=== PATIENT | male | born 1990 | race Caucasian/White ===

== ENCOUNTER 2018-06-02 17:29 | Emergency (ER) | payer MEDICAID ==
[~2018-06-02] VITALS: Ht 167.6 cm; Wt 83.0 kg
[2018-06-02 17:36] VITALS: Ht 167.6 cm; Wt 83.0 kg
[2018-06-02] MEDS ORDERED: TETRACAINE 0.5% 4 ML OPH RIGHT EYE ONE (18:30)
[2018-06-02] MEDS ORDERED: FLUORESCEIN STRIP RIGHT EYE ONE (18:30)
[2018-06-02] MEDS ORDERED: SULF15DR19 RIGHT EYE (19:37)
[2018-06-02 19:51] VITALS: BP 120/59; PULSE 95; RESP 16
--- NOTE | 2018-06-02 21:09 | ERD ---
ER Documentation Chief Complaint Chief Complaint Foreign body to the eye Glass from cell HPI 28 year-old [male] coming in today with Chief Complaint: Right eye pain History of Present Illness: Patient reporting cell phone right eye screen cracked and glass flew eye. Patient reporting pain, denies any other associated symptoms. Review of systems: All systems were reviewed and are negative except for what is indicated in the history of present illness. Past Medical History: [Negative for hypertension, diabetes or other medical problems] Social History: [Patient denies tobacco, alcohol, elicit drug use] Medications: [None] Allergies: [NKDA] Social Concerns: Denies ROS All systems reviewed and are negative except as per history of present illness. Medications Home Meds Active Scripts Sulfacetamide Sodium* (Bleph-10*) 10%-15 Ml Opht Drops, 2 DROP RIGHT EYE Q2H for corneal abrasion for 10 Days, #1 EA Prov:RO GUADALUPE Emmanuel WEBSITE PROJECT MANAGER 06/02/18 PMhx/Soc Medical and Surgical Hx: pt denies Medical Hx, pt denies Surgical Hx Hx Alcohol Use: No Hx Substance Use: No Hx Tobacco Use: Yes Smoking Status: Current every day smoker FmHx Family History: diabetes, coronary disease Physical Exam Vitals Vital Signs Date Temp Pulse Resp B/P (MAP) Pulse Ox O2 O2 Flow FiO2 Time Delivery Rate 06/02/18 98.0 95 16 120/59 100 Room Air 19:51 (79) 06/02/18 97.3 89 20 148/85 100 17:36 (106) Physical Exam Const: No acute distress Head: Atraumatic Eyes: Injected conjunctiva ENT: Normal External Ears, Nose and Mouth. Neck: Full range of motion. No meningismus. Resp: Clear to auscultation bilaterally Cardio: Regular rate and rhythm, no murmurs Abd: Soft, non tender, non distended. Normal bowel sounds Skin: No petechiae or rashes Back: No midline or flank tenderness Ext: No cyanosis, or edema Neur: Awake and alert Psych: Normal Mood and Affect Results 24 hrs Current Medications Medications Dose Sig/Pranav Start Time Status Last (Trade) Ordered Route PRN Stop Time Admin Dose Reason Admin Tetracaine 1 drop ONCE ONCE 06/02/18 DC HCl RIGHT EYE 18:30 (Tetracaine 06/02/18 18:31 0.5% Steri-Unit Celina) Fluorescein 1 strip ONCE ONCE 06/02/18 DC Sodium RIGHT EYE 18:30 (Azgge-L-Jlly 06/02/18 18:31 p) Procedures/MDM Patient with complaint of foreign body to right eye ED course includes a thorough examination and history. ED course includes fernandez lamp exam: Eye Exam w/ Fernandez Lamp: Visual Acuity: Visual Simmons: Intact in all four quadrants bilaterally Lac ducts/glands: No swelling Lids w/ evertion: Normal, no foreign body Conj/Carmi: negative Jean's; positive Fluorescein uptake to cornea Tonopen readings: Retina exam: No obvious abnormality Low suspicion for global rupture or ophthalmologic emergency. Otherwise healthy patient presenting with constellation of symptoms likely representing uncomplicated corneal abrasion as characterized by history, physical exam findings. No respiratory distress, otherwise relatively well appearing and nontoxic. Patient educated on diagnoses, prescriptions, follow-up care, return precautions. Strict return precautions given for worsening condition; questions answered discharge. Disposition for discharge with followup in 1-2 days with PCP/clinic, preferably ophthalmology. Nurse at bedside for Tongan translation. Patient verbalized understanding of all instructions and plan of care. Departure Diagnosis: Primary Impression: Corneal abrasion, right Encounter type: initial encounter Qualified Codes: S05.01XA - Injury of conjunctiva and corneal abrasion without foreign body, right eye, initial encounter Condition: Stable Patient Instructions: Corneal Abrasion Referrals: [facility] YOU HAVE RECEIVED A MEDICAL SCREENING EXAM AND THE RESULTS INDICATE THAT YOU DO NOT HAVE A CONDITION THAT REQUIRES URGENT TREATMENT IN THE EMERGENCY DEPARTMENT. FURTHER EVALUATION AND TREATMENT OF YOUR CONDITION CAN WAIT UNTIL YOU ARE SEEN IN YOUR DOCTORS OFFICE WITHIN THE NEXT 1-2 DAYS. IT IS YOUR RESPONSIBILITY TO MAKE AN APPOINTMENT FOR FOLOW-UP CARE. IF YOU HAVE A PRIMARY DOCTOR --you should call your primary doctor and schedule an appointment IF YOU DO NOT HAVE A PRIMARY DOCTOR YOU CAN CALL OUR PHYSICIAN REFERRAL HOTLINE AT IF YOU CAN NOT AFFORD TO SEE A PHYSICIAN YOU CAN CHOSE FROM THE FOLLOWING [facility] [address] [facility] [address] [facility] [facility] [address] [facility] [address] [facility] [facility] [address] [facility]. [facility] [address] [facility]. [facility] YOU HAVE RECEIVED A MEDICAL SCREENING EXAM AND THE RESULTS INDICATE THAT YOU DO NOT HAVE A CONDITION THAT REQUIRES URGENT TREATMENT IN THE EMERGENCY DEPARTMENT. FURTHER EVALUATION AND TREATMENT OF YOUR CONDITION CAN WAIT UNTIL YOU ARE SEEN IN YOUR DOCTORS OFFICE WITHIN THE NEXT 1-2 DAYS. IT IS YOUR RESPONSIBILITY TO MAKE AN APPOINTMENT FOR FOLOW-UP CARE. IF YOU HAVE A PRIMARY DOCTOR --you should call your primary doctor and schedule and appointment IF YOU DO NOT HAVE A PRIMARY DOCTOR YOU CAN CALL OUR PHYSICIAN REFERRAL HOTLINE AT . IF YOU CAN NOT AFFORD TO SEE A PHYSICIAN YOU CAN CHOSE FROM THE FOLLOWING [facility] INSTITUTIONS: [facility] [address] [place] [address] [facility] [address] [place], [place] [id number] [place] [address] + [facility] [address] [place] [address] [facility] Hours: Mon - Fri 9:00 AM - 5:00 PM Additional Instructions: Call your primary care doctor TOMORROW for an appointment during the next 1-2 days.See the doctor sooner or return here if your condition worsens before your appointment time. Call independent living instructor preferably for appointment for followup. Return sooner if pain worsens or vision changes occur. RO GUADALUPE NP Jun 02, 2018 21:09
== END 2018-06-02 19:53 | disposition home or self-care (01) ==
LOC: FTE 17:29
DX: S05.01XA Injury of conjunctiva and corneal abrasion without foreign body, right eye, initial encounter (principal); F17.210 Nicotine dependence, cigarettes, uncomplicated; X58.XXXA Exposure to other specified factors, initial encounter; Y92.9 Unspecified place or not applicable
CPT/HCPCS: Z7502; Z7610; 99283